=== PATIENT | female | born 1975 ===

== ENCOUNTER 2020-09-03 17:39 | Emergency (ER) | payer SELFPAY ==
[~2020-09-03] VITALS: Ht 157.5 cm; Wt 85.5 kg
[2020-09-03 18:30] LABS: BASOPHILS % (AUTO) 1 % (0-1); EOSINOPHILS % (AUTO) 2 % (1-7); LYMPHOCYTES % (AUTO) 26 % (22-44); MEAN CORPUSCULAR HEMOGLOBIN 30.2 pg (27.0-34.8); MEAN CORPUSCULAR HGB CONC 34.4 g/dL (32.4-35.8); MEAN PLATELET VOLUME 8.4 fL (7.4-10.4); MONOCYTES % (AUTO) 9 % (2-9); NEUTROPHILS % (AUTO) 63 % (42-75); PLATELET COUNT 234 x10^3/uL (130-400); RED BLOOD COUNT 4.73 x10^6/uL (3.82-5.3); RED CELL DISTRIBUTION WIDTH 12.4 % (9.6-15.2)
[2020-09-03] MEDS ORDERED: FLUCONAZOLE 100 MG TABLET PO ONE (18:30)
[2020-09-03 18:47] LABS: ALBUMIN 3.8 g/dL (3.4-5.0); ANION GAP 7 mmol/L (5-15); CALCIUM 8.9 mg/dL (8.5-10.1); CHLORIDE 105 mmol/L (98-107); CREATININE 0.85 mg/dL (0.55-1.02)
[2020-09-03 18:49] LABS: ALANINE AMINOTRANSFERASE 68 U/L (12-78); ALKALINE PHOSPHATASE 55 U/L (45-117); BILIRUBIN,TOTAL 0.5 mg/dL (0.2-1.0); TOTAL PROTEIN 6.8 g/dL (6.4-8.2)
[2020-09-03] MEDS ORDERED: FLUCONAZOLE 100 MG TABLET ONE (19:01)
[2020-09-03] MEDS ORDERED: METF500T17 PO (19:22)
[2020-09-03] MEDS ORDERED: LISI-170 PO (19:22)
[2020-09-03] MEDS ORDERED: FENO40TA4 PO (19:22)
[2020-09-03] MEDS ORDERED: EXEN2AUT IM (19:22)
[2020-09-03] MEDS ORDERED: ROSU20TA2 PO (19:22)
[2020-09-03] MEDS ORDERED: DAPA5TAB PO (19:22)
[2020-09-03] MEDS ORDERED: [UNRECOGNIZED DRUG - OTHER] PO (19:22)
[2020-09-03] MEDS ORDERED: KETOROLAC 30 MG/1 ML IM ONE (19:30)
[2020-09-03] MEDS ORDERED: KETOROLAC 60 MG/2 ML ONE (19:49)
--- NOTE | 2020-09-03 19:56 | NUR ---
patient medicated for pain.
[2020-09-03 20:15] VITALS: BP 143/79
--- NOTE | 2020-09-03 20:53 | NUR ---
re-evaluation done. patient left prior discharge.
== END 2020-09-03 21:14 | disposition home or self-care (01) ==
LOC: ED 18:00
DX: M54.5 Low back pain (principal); M54.6 Pain in thoracic spine; R53.83 Other fatigue; N93.9 Abnormal uterine and vaginal bleeding, unspecified; G89.29 Other chronic pain
CPT/HCPCS: 36415; 80053; 83735; 84100; 85025; 96372; 99283; J1885